=== PATIENT | male | born 1990 | race Caucasian/White ===

== ENCOUNTER 2021-04-24 03:14 | Emergency (ER) | payer SELFPAY ==
--- NOTE | 2021-04-24 03:25 | EDM.PDOC ---
ED HPI GENERAL MEDICAL PROBLEM - General Chief Complaint: General Stated Complaint: MEDICAL CLEARANCE Time Seen by Provider: 04/24/21 03:14 - History of Present Illness INITIAL COMMENTS - FREE TEXT/NARRATIVE: 30-year-old male with a history of bipolar disorder presents in police custody for medical clearance for incarceration. Patient reports he is trying to be compliant with his medications. The last couple nights he is falling asleep before his remember to take them. But he does try to be diligent about taking them as scheduled. He knows that he is on Seroquel and he thinks escitalopram but he has trouble with his memory and cannot recall the other medications. He denies auditory or visual hallucinations he denies HI or SI. He has no medical concerns today. ED ROS GENERAL - Review of Systems Review Of Systems: See Below Free Text/Narrative/Comment: General: No fever. Cardiac: No chest pain. Gastrointestinal: No nausea, vomiting or abdominal pain. Musculoskeletal: No myalgias/arthralgias. ED EXAM, GENERAL - Physical Exam Exam: See Below Free Text/Narrative:: General Appearance: No acute distress, appears comfortable HEENT: Normocephalic/atraumatic, sclera anicteric, mucous membranes moist Neck: Normal range of motion Chest and Lungs: Normal work of breathing Cardiovascular: Intact distal perfusion Neurologic: Awake, alert, no obvious deficits, moving all extremities Psychiatric: Appropriate, cooperative, no signs of internal stimuli thoughts linear and future oriented euthymic mood and appropriate affect no HI or SI Departure - Departure Time of Disposition: 03:24 Disposition: DC/Tfer to Court of Law En 21 Condition: Good Clinical Impression: Medical clearance for incarceration - Discharge Information *PRESCRIPTION DRUG MONITORING PROGRAM REVIEWED*: Not Applicable *COPY OF PRESCRIPTION DRUG MONITORING REPORT IN PATIENT [place]: Not Applicable Instructions: Medical Screening Exam Additional Instructions: The following information is given to patients seen in the emergency department who are being discharged to home. This information is to outline your options for follow-up care. We provide all patients seen in our emergency department with a follow-up referral. The need for follow-up, as well as the timing and circumstances, are variable depending upon the specifics of your emergency department visit. If you don't have a primary care physician on staff, we will provide you with a referral. We always advise you to contact your personal physician following an emergency department visit to inform them of the circumstance of the visit and for follow-up with them and/or the need for any referrals to a consulting specialist. The emergency department will also refer you to a specialist when appropriate. This referral assures that you have the opportunity for follow-up care with a specialist. All of these measure are taken in an effort to provide you with optimal care, which includes your follow-up. Under all circumstances we always encourage you to contact your private physician who remains a resource for coordinating your care. When calling for follow-up care, please make the office aware that this follow-up is from your recent emergency room visit. If for any reason you are refused follow-up, please contact the [facility] Emergency Department at and asked to speak to the emergency department charge nurse. - Assessment/Plan Assessment:: 30-year-old male presents without any signs of acute medical or psychiatric process. Patient felt stable for release into police custody.
== END 2021-04-24 03:28 ==
LOC: MW.ED 03:14
DX: Z02.89 Encounter for other administrative examinations (principal)
CPT/HCPCS: 99283